=== PATIENT | male | born 1945 | race Caucasian/White ===

== ENCOUNTER 2018-09-09 01:51 | Inpatient (IN) | payer MEDICARE, MEDICAID ==
[2018-09-09 02:36] LABS: #Eosinphils 0.3 thou/uL (0.0-0.7); #Lymphocytes 1.6 thou/uL (1.20-3.40); #Monocytes 0.6 thou/uL (0.11-0.59); #Neutrophils 6.7 thou/uL (1.40-6.50); %Basophils 0.3 % (0.0-1.0); %Eosinophils 2.9 % (0.0-10.0); %Monocytes 6.6 % (0.0-10.0); %Neutrophils 73.2 % (42.0-75.0); Hemoglobin 16.7 g/dL (14.0-18.0); Mean Corpuscular HGB CONC 34.3 g/dL (32.0-36.0); Mean Corpuscular Hemoglobin 34.4 pg (27.0-31.0); Mean Platelet Volume 7.9 fL (7.4-10.4); Platelet Count 150 thou/uL (130-400); RBC Distribution Width 11.7 % (11.5-14.5); Red Blood Cell (RBC) Count 4.84 mill/uL (4.70-6.10); White Blood Cell (WBC) Count 9.2 thou/uL (4.8-10.8)
[2018-09-09] MEDS ORDERED: Ondansetron ODT 4 MG TAB ONE (02:43)
[2018-09-09 03:06] LABS: ALT (SGPT) 16 U/L (8-55); AST (SGOT) 16 U/L (5-34); Albumin 3.9 g/dL (3.4-4.8); Alkaline Phosphatase 72 U/L (40-150); Anion Gap 14 mmol/L (10-20); BUN (Urea Nitrogen) 16 mg/dL (8.4-25.7); Bilirubin, Total 0.3 mg/dL (0.2-1.2); Calc. Creatinine Clearance 0 mL/min (70-130); Calcium 9.2 mg/dL (7.8-10.44); Carbon Dioxide 24 mmol/L (23-31); Chloride 107 mmol/L (98-107); Estimated GFR-MDRD 70; Globulin 2.6 g/dL (2.4-3.5); Glucose 115 mg/dL (83-110); Potassium 3.9 mmol/L (3.5-5.1); Protein, Total 6.5 g/dL (5.8-8.1); Sodium 141 mmol/L (136-145)
[2018-09-09 03:19] LABS: Bilirubin Negative (Negative); Blood, Urine Negative (Negative); Clarity CLEAR (Clear); Glucose, Urine (Dipstick) Negative (Negative); Leukocyte Small (Negative); Nitrite Negative (Negative); Protein, Urine (Dipstick) Negative (Neg-Trace); Specific Gravity, Urine 1.022 (1.002-1.036); Urobilinogen 0.2 mg/dL (0.2-1.0)
[2018-09-09 03:22] LABS: Bacteria/HPF None Seen HPF (None Seen); Pathc Cast-AUWi Flag 1.45 (0-2.49); RBC/HPF 0-3 HPF (0-3); Squamous Epithelial 0-3 HPF (0-3)
[2018-09-09 03:29] LABS: Hyaline Casts/LPF 0-3 HYALINE CAST LPF (0-3 Hyaline); Renal Epithelial None Seen HPF (0-3); Transitional Epithelial NONE SEEN HPF (0-3)
[2018-09-09 03:31] LABS: CKMB 0.8 ng/mL (0-6.6); Troponin I Less than 0.010 ng/mL (< 0.028)
[2018-09-09] MEDS ORDERED: Acetaminophen 325 MG TAB PO PRN (05:34)
[2018-09-09] MEDS ORDERED: Senokot S 8.6-50 MG TAB PO PRN (05:34)
[2018-09-09] MEDS ORDERED: hydrALAZINE 20 MG/ML VIAL SLOW IVP PRN (05:34)
[2018-09-09] MEDS ORDERED: Diabetic Tussin 200 MG/10 ML UDCUP PO PRN (05:34)
[2018-09-09] MEDS ORDERED: Nitroglycerin 0.4 MG TAB (25 Tab Bottle) SL PRN (05:34)
[2018-09-09] MEDS ORDERED: cloNIDine 0.1 MG TAB PO PRN (05:34)
[2018-09-09] MEDS ORDERED: Ondansetron PF 4 MG/2 ML Vial IVP PRN (05:34)
[2018-09-09] MEDS ORDERED: Sodium Chloride 0.65% Nasal 44 ML BOT EA NARE PRN (05:34)
[2018-09-09] MEDS ORDERED: Bisacodyl 5 MG TAB PO PRN (05:34)
[2018-09-09] MEDS ORDERED: Benzonatate 100 MG CAP PO PRN (05:34)
[2018-09-09 05:47] LABS: Troponin I Less than 0.010 ng/mL (< 0.028)
[2018-09-09] MEDS: Sodium Chloride 0.9% 1,000 ML IV SCH ×4 (06:16→23:11)
--- NOTE | 2018-09-09 07:03 | HP ---
PRIMARY CARE PHYSICIAN: Dr. Carmel Henry. CHIEF COMPLAINT: Passing out spell and vomiting and kidney pain. HISTORY OF PRESENT ILLNESS: Mr. Harvey is a very pleasant 73-year-old male with history of coronary a rtery disease status post CABG x1 in 2012 as well as history of overactive bladder, who presented to the ER with the above-mentioned complaints. History is mainly obtained by the patient himself and el ectronic medical records have been reviewed. The patient reports that he has been having some kidney pain on and off for the last few days. He re ports that he has been on some medication for his bladder by urologist, Dr. Kebede, but was recently taken off of it because he felt that the medication is causing him to have pain in his kidneys. He felt better for about a week and then his kidney pain came back. He reports that moves from side to side. He reports it has been happening for the last week or so now. This morning, while sitting elie n on the chair, suddenly when he was turning, he slid down and feels that he lost consciousness for a few seconds, but was immediately able to correct himself and pull himself back in the chair. Later, he felt nauseated and had dry heaves multiple times and eventually vomited when his daughter was abdirizak chaudharig him over to the hospital. He has increased urinary frequency and difficulty going with hesitanc y and retention. He reports foul smell to his urine. He denies any blood in the urine. He denies a ny chest pain, shortness of breath, palpitation, diaphoresis today or in the last few days. He denie s any recent illnesses. He has not been on any cardiac medications since his surgery and he did follow up with auto body shop manager Eden Yee and Dr. Berkowitz in the outpatient setting for a while, but has not seen them in a long keyshawn e. He reports that last time he was told that his heart function is reduced to 40%, but he did not f ollow up and is not on any medications, reason unknown. In the emergency room today, his blood pressure was 135/71, pulse of 66, saturating 96% on room air. His 12-lead EKG and chest x-ray were rather unremarkable. Cardiac enzymes and labs within normal li mits. He had urinalysis that had some leukocyte esterase, WBCs, uric acid and calcium oxalate alisha ls. He was reportedly mildly orthostatic. His D-dimer was within normal limit. He was given IV flu ids in the ER and is now being admitted for further workup for his syncopal episode. PAST MEDICAL HISTORY: 1. Coronary artery disease status post CABG x1 in 2011. 2. Peripheral neuropathy. 3. "Overactive bladder". 4. Hypertension. PAST SURGICAL HISTORY: 1. Right testicle removed. 2. CABG x1. PSYCHIATRIC HISTORY: Some depression and anxiety. SOCIAL HISTORY: He lives by himself and drinks socially every week. No history of smoking or drug a buse. FAMILY HISTORY: No significant family history of premature coronary artery disease or stroke. KNOWN ALLERGIES: CODEINE, PENICILLIN, STATINS and SULFONAMIDES. CURRENT MEDICATIONS: None. REVIEW OF SYSTEMS: A 12-point review of systems is done, it is negative except for those mentioned i n the history and physical. LABORATORY DATA AND IMAGING: CBC is unremarkable. D-dimer 0.42. Serum chemistry unremarkable. Blo od sugar 115, troponin less than 0.010 x2 with normal CK-MB. BNP normal. Urinalysis as per HPI with some ketones. Chest x-ray by my review has no evidence to suggest any pleural effusion, edema or in filtrate. Twelve lead EKG by my review shows some premature atrial complexes and some nonspecific ST and T-wave changes, but nothing acute. PHYSICAL EXAMINATION: VITAL SIGNS: Most recent vital signs, temperature 97.8, pulse of 82, respirations 20, saturating 98% on room air, blood pressure 162/71. GENERAL: No acute distress. He is actually coming in and out of the restroom, because of urinary fr equency and the hesitancy during the interview. He is awake, alert, oriented x3. HEENT: Mucous membranes are slightly dry. No oropharyngeal exudate or erythema. Head is normocepha lic, atraumatic. Pupils equal, reactive to light and accommodation. Extraocular movement intact. NECK: Supple without any lymphadenopathy, JVD or bruit. CHEST: Clear to auscultation without any wheezing, rales or rhonchi. CARDIOVASCULAR: Rate and rhythm is regular without any murmur, rubs or gallops. ABDOMEN: Soft, nontender, nondistended. No CVA tenderness. EXTREMITIES: Free of any cyanosis, clubbing, or edema. NEUROLOGIC: Nonfocal. SKIN: Free of any rashes or bruises. I feel warm and dry to touch. IMPRESSION AND PLAN: 1. Syncope, it sounds more like vasovagal phenomenon after him having nausea and vomiting, possibly from a urinary tract infection. He, however, reports a low ejection fraction in multiple years ago, so cardiomyopathy cannot also be ruled out. He was mildly orthostatic, so dehydration is also respon sible for some of his symptoms. At this time, we will start him on IV fluids and IV antibiotic and s end his urine for culture. Obtain a transthoracic echocardiogram as well as carotid Doppler ultrasou nd to rule out any impairment of posterior basilar circulation. He will be also on monitoring manager ing to rule out any arrhythmias. He is currently feeling much better. 2. Hypertension. The patient's blood pressure is elevated at this time. We will start him on low d ose lisinopril given his history of coronary artery disease. He is not on any medication for now. A void any beta blockers as he was mildly orthostatic. We will recheck orthostatics and if improved wi th IV fluids, he might benefit from addition of low dose beta blockers as well. We will continue to trend serial cardiac enzymes. Cardiac etiology as such as acute coronary syndrome is less likely for now. 3. Urinary tract infection. He does not have any bacteria in the urine, but given his symptoms, we will go ahead and treat him. He will benefit from referral back to Urology for his urinary hesitancy , frequency, and possibly retention like symptoms. I would want to start him on Flomax at this time until he is seen by the Urology in the outpatient setting. 4. Coronary artery disease, status post coronary artery bypass graft. For some reason, the patient is not on any cardiac prudent medications. We will start him on low dose lisinopril and add beta blo cker as tolerated. I do not see any contraindication for aspirin at this time; however, we would ref er him back to Cardiology in the outpatient setting for further evaluation. Echo has been ordered as above. 5. CODE STATUS: FULL CODE, discussed with the patient. 6. Deep venous thrombosis and gastrointestinal prophylaxis on p.r.n. medications. DISPOSITION: Mr. Harvey is currently being admitted under observation status for a possible syncopal episode and urinary tract infection. Estimated length of stay is less than 2 midnights for now. Fur ther management will depend upon his clinical course.
--- NOTE | 2018-09-09 08:35 | RAD ---
SINGLE VIEW OF THE CHEST: Comparison: 01-27-12 History: Syncope. FINDINGS: Single view of the chest shows a normal sized cardiomediastinal silhouette. The patient is status pos t sternotomy. There is no evidence of consolidation, mass, or pleural effusion. IMPRESSION: NO evidence of acute cardiopulmonary disease. POS: [facility]
[2018-09-09] MEDS: Famotidine 20 MG TAB PO SCH ×2 (09:21→19:57)
[2018-09-09] MEDS: Tamsulosin HCl 0.4 MG CAP PO SCH (09:22)
[2018-09-09] MEDS: Lisinopril 2.5 MG TAB PO SCH (09:22)
[2018-09-09] MEDS: Enoxaparin Sodium 40 MG/0.4 ML SYRINGE SC SCH (09:28)
[2018-09-09 10:05] LABS: Troponin I Less than 0.010 ng/mL (< 0.028)
--- NOTE | 2018-09-09 10:10 | ULT ---
CAROTID ULTRASOUND WITH FOOTE SCALE AND DOPPLER DUPLEX COLOR FLOW IMAGING SPECTRAL ANALYSIS PERFORMED: CLINICAL INDICATION: FINDINGS: There is scattered mild intimal thickening/plaque formation of the carotid arteries. PEAK SYSTOLIC VELOCITY (CM/S): Right CCA 90 Left CCA 107 Right ICA 89 Left ICA 88 There is antegrade flow within the visualized bilateral vertebral arteries. IMPRESSION: 1. No hemodynamically significant stenosis of the right internal carotid artery. 2. No hemodynamically significant stenosis of the left internal carotid artery. POS: [facility]
--- NOTE | 2018-09-09 17:54 | PDOC.PN ---
- Subjective Encounter Start Date: 09/09/18 Encounter Start Time: 10:00 Patient lying in bed, he reports feeling better today, no events since admission. No chest pain, shortness of breath or abdominal pain. No syncopal like episode. Carotid doppler unremarkable. - Objective MAR Reviewed: Yes Vital Signs & Weight: Vital Signs (12 hours) Temp Pulse Resp BP Pulse Ox 09/09/18 15:23 98 F 76 18 114/66 96 09/09/18 11:23 98.7 F 79 18 128/68 97 09/09/18 09:22 81 09/09/18 07:30 98.2 F 81 18 119/62 98 Weight Weight 157 lb 1.6 oz I&O: 09/08/18 09/09/18 09/10/18 06:59 06:59 06:59 Intake Total 60 591 Output Total 500 550 Balance -440 41 Result Diagrams: 09/09/18 02:25 09/09/18 02:25 Radiology Reviewed by me: Yes Phys Exam - Physical Examination Constitutional: NAD HEENT: PERRLA, moist MMs, sclera anicteric, 2+ tonsils Neck: no nodes, no JVD, supple Respiratory: no wheezing, no rales, no rhonchi Cardiovascular: RRR, no significant murmur, no rub Gastrointestinal: soft, non-tender, no distention Musculoskeletal: no edema, pulses present Neurological: non-focal, normal sensation, moves all 4 limbs Lymphatic: no nodes Psychiatric: normal affect, A&O x 3 Skin: no rash, normal turgor, cap refill <2 seconds Dx/Plan (1) Syncope Code(s): R55 - SYNCOPE AND COLLAPSE Status: Acute (2) Hypertension Code(s): I10 - ESSENTIAL (PRIMARY) HYPERTENSION Status: Acute (3) CAD (coronary artery disease) Code(s): I25.10 - ATHSCL HEART DISEASE OF [place] CORONARY ARTERY W/O ANG PCTRS Status: Acute (4) UTI (urinary tract infection) Status: Acute - Plan cont current plan of care, DVT proph w/lovenox, DVT proph w/SCDs * Continue antibiotics for UTI, await urine culture * Continue lisinopril for BP * IV fluids for hydration * Carotid doppler unremarkable * Await Echo results * Further medical management pending patient progress and workup
[2018-09-10 04:39] LABS: Anion Gap 10 mmol/L (10-20); BUN (Urea Nitrogen) 12 mg/dL (8.4-25.7); Calc. Creatinine Clearance 65 mL/min (70-130); Calcium 8.1 mg/dL (7.8-10.44); Carbon Dioxide 20 mmol/L (23-31); Chloride 113 mmol/L (98-107); Estimated GFR-MDRD 73; Glucose 99 mg/dL (83-110); Potassium 3.9 mmol/L (3.5-5.1); Sodium 139 mmol/L (136-145)
[2018-09-10] MEDS: Enoxaparin Sodium 40 MG/0.4 ML SYRINGE SC SCH (09:41)
[2018-09-10] MEDS: Famotidine 20 MG TAB PO SCH ×2 (09:41→21:15)
[2018-09-10] MEDS: Sodium Chloride 0.9% 1,000 ML IV SCH (09:41)
[2018-09-10] MEDS: Tamsulosin HCl 0.4 MG CAP PO SCH (09:41)
[2018-09-10] MEDS: Lisinopril 2.5 MG TAB PO SCH (09:50)
--- NOTE | 2018-09-10 16:04 | PDOC.PN ---
- Subjective Encounter Start Date: 09/10/18 Encounter Start Time: 11:00 Patient lying in bed, he reports feeling better today no events over night. He denies chest pain, shortness of breath or abdominal pain. No nausea or vomiting. Echo displayed EF 40-45% with anteroseptal wall thin and dyskenetic with concern for old anterseptal IA. Dr Berkowitz would like to plan for heart cath tomrrow. - Objective MAR Reviewed: Yes Vital Signs & Weight: Vital Signs (12 hours) Temp Pulse Resp BP BP BP BP 09/10/18 11:24 98.1 F 63 16 117/63 09/10/18 08:00 123/63 125/71 121/56 L 09/10/18 07:31 98.5 F 60 18 Pulse Ox 09/10/18 11:24 98 09/10/18 08:00 09/10/18 07:31 96 Weight Weight 158 lb 12.8 oz I&O: 09/09/18 09/10/18 09/11/18 06:59 06:59 06:59 Intake Total 60 2736 905 Output Total 500 1575 300 Balance -440 1161 605 Result Diagrams: 09/09/18 02:25 09/10/18 03:49 Radiology Reviewed by me: Yes Phys Exam - Physical Examination Constitutional: NAD HEENT: PERRLA, moist MMs, sclera anicteric, oral pharynx no lesions Neck: no nodes, no JVD, supple Respiratory: no wheezing, no rales, no rhonchi, clear to auscultation bilateral Cardiovascular: RRR, no significant murmur, no rub Gastrointestinal: soft, non-tender, no distention, positive bowel sounds Musculoskeletal: no edema, pulses present Neurological: non-focal, normal sensation, moves all 4 limbs Lymphatic: no nodes Psychiatric: normal affect, A&O x 3 Skin: no rash, normal turgor, cap refill <2 seconds Dx/Plan (1) Syncope Code(s): R55 - SYNCOPE AND COLLAPSE Status: Acute (2) Hypertension Code(s): I10 - ESSENTIAL (PRIMARY) HYPERTENSION Status: Acute (3) CAD (coronary artery disease) Code(s): I25.10 - ATHSCL HEART DISEASE OF [place] CORONARY ARTERY W/O ANG PCTRS Status: Acute - Plan cont current plan of care, DVT proph w/lovenox, DVT proph w/SCDs * Echo reviewed and showed EF 40-45% with anteroseptal wall thinning with dyskentic with concern for old IA. Dr Berkowitz planning heart cath tomorrow. * Will make patient NPO at midnight. * Urine culture negative and shows no growth therefore will discontinue antibiotics, patient asymptomatic. * Further management pending patient progress and results of heart catheterization
[2018-09-10] MEDS ORDERED: Communication Order-Pharmacy FS SCH (18:30)
--- NOTE | 2018-09-10 20:25 | CON ---
CARDIOLOGY CONSULTATION DATE OF CONSULTATION: 09/10/2018 REASON FOR CONSULTATION: Syncope. HISTORY OF PRESENT ILLNESS: Mr. Harvey is a very pleasant 73-year-old white gentleman who comes to [facility] for a spell where he was at home watching TV, he had just finished his bowl of cereal, he drank the milk from the bowl and then he put the bowl on the table, turned around and felt like he wa s not in control of his body, everything started to get blurry. Once he finally regained consciousne ss, he was intermediate down the chair, slid off and was able to grab himself and sit back up on the chair . He felt nauseated for about 30 minutes after that and eventually vomited his cereal. He called hi s daughter who told him that he had to come to the hospital for this, so he came in for further evalu ation. He does have a history of coronary artery disease with a CABG x1 in 2005. He had a MARQUEZ to t he LAD, single vessel bypass. This is a very small 2 mm LAD, but a good conduit. Dr. Reed did perf orm this procedure. He actually never followed up except for one time with Dr. Yee and never ag ain. At one point in 2011, he was admitted to the hospital and was told that his EF was about 30%. This was back in 2011. More recently about 2 months ago, he showed in my office in [place] and I saw him for the first time there. He was just there establishing care. We had ordered an echocard iogram and a stress test, has not performed any of these procedures yet. Today, he is here, he had an echo done and showed an EF of 40-45%. He has got a large anteroseptal scar with thinning and dyskinesis of that wall. Cardiology is being consulted for further evaluation of all this. PAST MEDICAL HISTORY: 1. Coronary artery disease, status post CABG x1 in 2005 with a MARQUEZ to the LAD, single vessel. 2. Peripheral neuropathy. 3. Overactive bladder. 4. Hypertension. PAST SURGICAL HISTORY: 1. Right testicle removal. 2. x1. SOCIAL HISTORY: Social alcohol use, no tobacco or drug use. FAMILY HISTORY: Significant for premature coronary disease in both parents and his brother. OUTPATIENT MEDICATIONS: None. ALLERGIES: CODEINE, PENICILLIN, STATINS, SULFONAMIDES. REVIEW OF SYSTEMS: A 12-point review of systems was done and is all negative unless stated in the hi story of present illness. PHYSICAL EXAMINATION: VITAL SIGNS: Temperature 98.0, pulse 63, respiratory rate 14, satting 97% on room air, blood pressur e 142/68. His blood pressure lying flat was 121/56 and standing up 125/71, so he does not tilt. GENERAL: Awake, alert, oriented x3, in no distress. HEENT: Normocephalic. NECK: Supple. LUNGS: Clear. CARDIOVASCULAR: S1, S2, no S3, S4, no murmurs. ABDOMEN: Soft. Positive bowel sounds. EXTREMITIES: No edema. SKIN: Warm and dry. LABORATORY WORK: Reviewed. CBC: White count of 9, hemoglobin of 16, hematocrit of 48, platelet cou nt of 150. D-dimer was normal. Chemistry was unremarkable. Troponin was negative x3. BNP was 22. UA was unremarkable. EKG was reviewed. Echocardiogram was reviewed, it showed an EF of 40-45%. There is thinning and dyskinesis of the ante roseptal wall suggestive of an old anteroseptal myocardial infarction. No major valvular abnormality . ASSESSMENT AND PLAN: 1. Syncope/presyncope. 2. Dilated ischemic cardiomyopathy. 3. Reduced left ventricular function, ejection fraction at 40-45%. 4. High likelihood of an ischemic arrhythmia. 5. Coronary artery disease, status post MARQUEZ to the LAD, single vessel bypass in 2005. 6. Noncompliance and no followup. PLAN: 1. We will need to screen for ischemia. There is a high likelihood that this was an ischemic arrhyt hmia causing him to be presyncopal. We will plan on doing a heart catheterization, we spoke with him at length about the risks and benefits of the procedure, risks including, but not limited to stroke, CO, , bleeding, need for blood transfusion, limb loss, organ loss. He agrees. He verbalized u nderstanding of this and agrees to proceed. Further recommendation per results of coronary angiogram . 2. If there is no revascularizable disease, we will consult EP for possible EP study versus just an event monitor. Thank you for letting us to participate in the care of your patient. We will follow.
[2018-09-10] MEDS ORDERED: Sodium Chloride 0.9% 1,000 ML IV SCH (23:30)
[2018-09-11] MEDS: Famotidine 20 MG TAB PO SCH ×2 (06:20→20:54)
[2018-09-11] MEDS ORDERED: Lidocaine 1% (PF) 30 ML VIAL ONE (06:29)
[2018-09-11] MEDS ORDERED: Midazolam HCl 2 mg/2 ml Vial ONE (07:32)
[2018-09-11] MEDS ORDERED: Fentanyl 100 MCG/2 ML VIAL ONE (07:32)
[2018-09-11 07:41] VITALS: BMI 23.0
--- NOTE | 2018-09-11 08:06 | CON ---
ELECTROPHYSIOLOGY CONSULTATION REPORT DATE OF CONSULTATION: 09/10/2018 REFERRING PHYSICIAN: Dr. Berkowitz. [place] [facility] [place] an electrophysiology nutrition consultant. His problems are: 1. Near syncopal spell. 2. History of chronic systolic congestive heart failure with ischemic cardiomyopathy. A. Previous history of myocardial infarction in 2005. B. CABG x1 vessels in 2011. C. Reduced LVEF in the past. Most recent echo from today reveals LVEF of 40%-45%. Mildly enlarged right atrial size, mild MR, mild dilated left atrium. 3. History of TIA. 4. History of hypertension. SUBJECTIVE: Mr. Harvey is complaining of an episode of near syncopal spell. As he states, he had so me backaches attributing to his kidneys, which was causing some nausea. He then realized he was slid ing over to the right side and then nearly passed out. He thinks he actually did not fully lose cons ciousness, felt more nauseous and eventually needed to go to restroom and later even threw up some, s ome dry retching reported at that time. He has not passed out after that. He called ambulance and c kat to the ER. Here, there was no further episodes. Currently, the backaches and nausea were resolved. He never had any chest pain suggestive of angina. He had no palpitations or stroke-like symptoms at this time. No fever, chills, or cough. No bleed ing issues. REVIEW OF SYSTEMS: Rest of twelve-point review of systems otherwise unremarkable. PAST MEDICAL HISTORY: As above. He had a surgical history of right testicle removal. He also repor ts history of TIA in 01/2012, chest pains were evaluated with stress test in 01/2016, reports availab le to me currently. OBJECTIVE DATA: VITAL SIGNS: Blood pressure is 120/56 supine and standing is 125/71, heart rate 63, respiratory rate 16, temperature 98.1 degrees Fahrenheit. GENERAL: He is alert and oriented man, in no apparent distress. NECK: Supple. Jugular veins not distended. CHEST: Coarse without crackles. CARDIOVASCULAR: Heart sounds are regular to rate and rhythm. No murmur or gallop. ABDOMEN: Benign. Bowel sounds positive. EXTREMITIES: Lower extremities without edema, clubbing, or cyanosis. Pulses are adequate. NEUROLOGIC: Patient is nonfocal. MUSCULOSKELETAL: Without joint swelling or deformities. SKIN: Without rash. The mid sternal scar is appreciated. DATABASE: EKGs reviewed reveals sinus rhythm, rate of 62 beats per minute, narrow QRS, QS in V2, V3, suggestive of prior septal OR. LABORATORY DATA: White count is 9.2, hemoglobin 16.7, platelet count is 150,000. Sodium 139, potass ium 3.9, BUN is 12, creatinine 1.0. Troponin I's are 0.01 x3. BNP 22.6. IMAGING: The chest x-ray showed no evidence of acute cardiopulmonary disease. ASSESSMENT AND PLAN: Mr. Harvey is a pleasant 73-year-old man with prior history of coronary artery d isease, myocardial infarction, and ischemic cardiomyopathy, [id number] reduced LVEF of 40%-45% in the current echocardiogram. He presented with near syncopal spell in the presence of some nausea. We discussed the potential etiologies which could include some vagal tone related blood pressure or h eart rate drop versus tachyarrhythmias also could be considered. Especially in view of the prior melonie cardial infarction and less than normal LV systolic function, this is a possibility. At this point, plan is to perform a repeat ischemic workup as per Dr. Berkowitz. We will continue monitoring depending on the results especially further ventricular arrhythmias are s een, but no revascularization is possible, EP study may be a reasonable option. Otherwise, a long-te rm monitoring could be considered. We will follow with you and we will advise depending on left heart catheterization results.
[2018-09-11] MEDS: Tamsulosin HCl 0.4 MG CAP PO SCH (08:10)
[2018-09-11] MEDS ORDERED: traMADol HCl 50 MG TAB PO PRN (08:18)
[2018-09-11] MEDS ORDERED: Sodium Chloride 0.9% 200 ML IV SCH (08:30)
[2018-09-11] MEDS ORDERED: Sodium Chloride 0.9% 1,000 ML IV SCH (08:30)
[2018-09-11] MEDS ORDERED: Iopamidol 370 76% 100 ML VIAL ONE (13:13)
--- NOTE | 2018-09-11 16:44 | PDOC.CTH ---
Cardiology Progress Note - Subjective EP progress note: Patient seen and evaluated. No new cardiac concerns or complaints today. Denies heart racing, palpitations, chest pain/pressure, dizziness, or passing out. No stroke like symptoms. - Objective Vital Signs Temp Pulse Resp BP BP Pulse Ox 09/11/18 15:56 98.8 F 64 18 117/58 L 98 09/11/18 13:50 96 09/11/18 13:30 98.2 F 84 18 112/84 96 09/11/18 11:29 98.5 F 88 20 111/61 97 Weight 160 lb 8 oz 09/10/18 09/11/18 09/12/18 06:59 06:59 06:59 Intake Total 2736 905 490 Output Total 1575 300 655 Balance 1161 605 -165 - Physical Examination General/Neuro: alert & oriented x3, NAD Neck: carotid US brisk, no JVD present Lungs: CTA, unlabored respirations Heart: PMI normal, RRR Abdomen: NT/ND, soft - Telemetry Telemetry Rhythm: SR - Labs Result Diagrams: 09/09/18 02:25 09/10/18 03:49 Troponin/CKMB CK-MB (CK-2) 0.8 ng/mL (0-6.6) 09/09/18 02:25 Troponin I Less than 0.010 ng/mL (< 0.028) 09/09/18 09:14 - Assessment/Plan 1. CAD -LHC, no intervention performed. 2. ICMP, EF 40-45% 3. Near syncope -associated nausea, back pain. - recommend ILR. Discussed with Dr Berkowitz. Will be placed by him likely tomorrow. OK to DC by EP.
--- NOTE | 2018-09-11 17:13 | PDOC.PN ---
- Subjective Encounter Start Date: 09/11/18 Encounter Start Time: 13:00 Patient lying in bed, he reports doing well today without complaints. He denies chest pain, palpitations, shortness of breath. He underwent LHC no intervention was performed. Dr Richards in agreement with loop recorder placement likely tomorrow. - Objective MAR Reviewed: Yes Vital Signs & Weight: Vital Signs (12 hours) Temp Pulse Resp BP BP Pulse Ox 09/11/18 15:56 98.8 F 64 18 117/58 L 98 09/11/18 13:50 96 09/11/18 13:30 98.2 F 84 18 112/84 96 09/11/18 11:29 98.5 F 88 20 111/61 97 Weight Weight 160 lb 8 oz I&O: 09/10/18 09/11/18 09/12/18 06:59 06:59 06:59 Intake Total 2736 905 490 Output Total 1575 300 655 Balance 1161 605 -165 Result Diagrams: 09/09/18 02:25 09/10/18 03:49 Radiology Reviewed by me: Yes Phys Exam - Physical Examination Constitutional: NAD HEENT: PERRLA, moist MMs, sclera anicteric, oral pharynx no lesions edentulous Neck: no nodes, no JVD, supple, full ROM Respiratory: no wheezing, no rhonchi, clear to auscultation bilateral Cardiovascular: RRR, no significant murmur, no rub Gastrointestinal: soft, non-tender, no distention, positive bowel sounds Musculoskeletal: no edema, pulses present, edema present Neurological: non-focal, normal sensation, moves all 4 limbs Lymphatic: no nodes Psychiatric: normal affect, A&O x 3 Skin: no rash, normal turgor, cap refill <2 seconds Dx/Plan (1) Syncope Code(s): R55 - SYNCOPE AND COLLAPSE Status: Acute (2) Hypertension Code(s): I10 - ESSENTIAL (PRIMARY) HYPERTENSION Status: Acute (3) CAD (coronary artery disease) Code(s): I25.10 - ATHSCL HEART DISEASE OF [place] CORONARY ARTERY W/O ANG PCTRS Status: Acute (4) Ischemic cardiomyopathy Code(s): I25.5 - ISCHEMIC CARDIOMYOPATHY Status: Acute - Plan cont current plan of care * Patient s/p LHC no intervention performed EF 40-45% * Dr Richards in agreement with loop recorder placement likely tomorrow * Continue medical management with home medications * Disposition pending patient progress and loop recorder placement
[2018-09-12] MEDS: Tamsulosin HCl 0.4 MG CAP PO SCH (07:31)
[2018-09-12] MEDS: Famotidine 20 MG TAB PO SCH ×2 (08:37→20:22)
[2018-09-12] MEDS ORDERED: Sodium Chloride 0.9% 500 ML IV SCH (14:45)
[2018-09-12] MEDS: diphenhydrAMINE 25 MG CAP PO PRN ×2 (15:16→19:27)
--- NOTE | 2018-09-12 16:12 | PDOC.PN ---
- Subjective Encounter Start Date: 09/12/18 Encounter Start Time: 13:00 Patient sitting up in bed, he reports having itching and rash appear from electrodes from tele. He denies any chest pain or shortness of breath. Ortho BP positive. He denies dizziness or syncope. - Objective MAR Reviewed: Yes Vital Signs & Weight: Vital Signs (12 hours) Temp Pulse Resp BP BP BP BP 09/12/18 15:31 98 F 62 18 117/63 09/12/18 12:00 98.3 F 64 18 104/59 L 09/12/18 07:25 09/12/18 07:23 70 16 113/63 100/65 123/64 09/12/18 07:19 98.3 F 70 14 128/64 Pulse Ox 09/12/18 15:31 96 09/12/18 12:00 94 L 09/12/18 07:25 96 09/12/18 07:23 09/12/18 07:19 96 Weight Weight 149 lb 8 oz I&O: 09/11/18 09/12/18 09/13/18 06:59 06:59 06:59 Intake Total 905 1450 Output Total 300 1955 Balance 605 -505 Result Diagrams: 09/09/18 02:25 09/10/18 03:49 Radiology Reviewed by me: Yes EKG Reviewed by me: Yes Phys Exam - Physical Examination Constitutional: NAD HEENT: PERRLA, moist MMs, sclera anicteric, oral pharynx no lesions Neck: no nodes, no JVD, supple Respiratory: no wheezing, no rales, no rhonchi, clear to auscultation bilateral Cardiovascular: RRR, no significant murmur, no rub Gastrointestinal: soft, non-tender, no distention, positive bowel sounds Musculoskeletal: no edema, pulses present Neurological: non-focal, normal sensation, moves all 4 limbs Lymphatic: no nodes Psychiatric: normal affect, A&O x 3 Skin: normal turgor, cap refill <2 seconds Deviation from normal: Erythematous eruptions anterior chest Dx/Plan (1) Syncope Code(s): R55 - SYNCOPE AND COLLAPSE Status: Acute (2) Hypertension Code(s): I10 - ESSENTIAL (PRIMARY) HYPERTENSION Status: Acute (3) CAD (coronary artery disease) Code(s): I25.10 - ATHSCL HEART DISEASE OF [place] CORONARY ARTERY W/O ANG PCTRS Status: Acute (4) Ischemic cardiomyopathy Code(s): I25.5 - ISCHEMIC CARDIOMYOPATHY Status: Acute (5) Allergic contact dermatitis due to adhesives Code(s): L23.1 - ALLERGIC CONTACT DERMATITIS DUE TO ADHESIVES Status: Acute - Plan cont current plan of care, DVT proph w/SCDs * Dr Berkowitz following and planning LINQ placement tomorrow * Start benadryl 25mg prn itching for reaction to adhesive * 500ml bolus due to orthostatic hypotension * monitor patient closely * Disposition pending patient progress andoutcome of LINQ, but likely home
--- NOTE | 2018-09-12 17:44 | PDOC.CTH ---
Cardiology Progress Note - Subjective He is doing well. His hematoma has resolved and only has a small bruise on his groin. - Objective Vital Signs Temp Pulse Resp BP BP BP BP 09/12/18 15:31 98 F 62 18 117/63 09/12/18 12:00 98.3 F 64 18 104/59 L 09/12/18 07:25 09/12/18 07:23 70 16 113/63 100/65 123/64 09/12/18 07:19 98.3 F 70 14 128/64 Pulse Ox 09/12/18 15:31 96 09/12/18 12:00 94 L 09/12/18 07:25 96 09/12/18 07:23 09/12/18 07:19 96 Weight 149 lb 8 oz 09/11/18 09/12/18 09/13/18 06:59 06:59 06:59 Intake Total 905 1450 Output Total 300 1955 Balance 605 -505 - Physical Examination General/Neuro: alert & oriented x3, NAD Neck: no JVD present Lungs: CTA, unlabored respirations Heart: RRR Abdomen: NT/ND Extremities: other: (no edema.) - Telemetry Telemetry Rhythm: NSR - Labs Result Diagrams: 09/09/18 02:25 09/10/18 03:49 Troponin/CKMB CK-MB (CK-2) 0.8 ng/mL (0-6.6) 09/09/18 02:25 Troponin I Less than 0.010 ng/mL (< 0.028) 09/09/18 09:14 - Assessment/Plan 1. Syncope. 2. CAD 3. S/P CABG 4. Dilated CM Ef at 40-45% PLAN: - ill plan on doing LINQ tomorrow. - May discharge tomorrow after LINQ - Will need stenting of his IR but this will happen after his right groin has healed in about 1 month and will have to do with a faye catheter in place.
[2018-09-13] MEDS: diphenhydrAMINE 25 MG CAP PO PRN ×2 (01:55→10:13)
[2018-09-13] MEDS ORDERED: Lidocaine 1% w/Epinephrine 1:100K 30 ML VIAL ONE (06:50)
[2018-09-13] MEDS: Famotidine 20 MG TAB PO SCH (08:12)
[2018-09-13] MEDS: Tamsulosin HCl 0.4 MG CAP PO SCH (08:12)
[2018-09-13 12:08] VITALS: BP 136/64; TEMP 98.2
--- NOTE | 2018-09-13 13:44 | PDOC.CTH ---
Cardiology Progress Note - Subjective EP progress note: Getting ready for DC after ILR placed by Dr Berkowitz. No new issues. Feels well and ready for DC home - Objective Vital Signs Temp Pulse Resp BP BP BP BP 09/13/18 12:00 98.2 F 69 17 136/64 09/13/18 08:19 97.9 F 75 15 118/59 L 118/59 L 09/13/18 08:00 97.9 F 75 15 109/56 L 112/59 L 09/13/18 04:00 99 F 68 12 105/51 L BP Pulse Ox 09/13/18 12:00 96 09/13/18 08:19 97 09/13/18 08:00 109/56 L 97 09/13/18 04:00 96 Weight 149 lb 11.2 oz 09/12/18 09/13/18 09/14/18 06:59 06:59 06:59 Intake Total 1450 1570 Output Total 1955 1500 Balance -505 70 - Physical Examination General/Neuro: alert & oriented x3, NAD Neck: carotid US brisk, no JVD present Lungs: CTA, unlabored respirations Heart: PMI normal, RRR Abdomen: NT/ND, soft - Telemetry Telemetry Rhythm: SR - Labs Result Diagrams: 09/09/18 02:25 09/10/18 03:49 Troponin/CKMB CK-MB (CK-2) 0.8 ng/mL (0-6.6) 09/09/18 02:25 Troponin I Less than 0.010 ng/mL (< 0.028) 09/09/18 09:14 - Assessment/Plan 1. CAD -LHC, no intervention performed. 2. ICMP, EF 40-45% 3. Near syncope -associated nausea, back pain. - ILR placed today OK to DC by EP. Will see back in clinic in 4-6 weeks. Signing off
--- NOTE | 2018-09-13 22:35 | CCL ---
DATE OF SERVICE: 09/13/2018. PROCEDURES PERFORMED: Insertion of permanent monitoring and evaluation advisor Medtronic model [id number] MDT Linq 11, serial number [id number]. COMPLICATIONS: None. PROCEDURE SUMMARY: The patient was taken to the procedural area, prepped and draped in the usual sterile fashion. Lidoc tina was utilized for local anesthesia. An incision was made at the fourth intercostal space in the left pectoral region utilizing a skin puncture tool. The insertion monitoring and evaluation advisor Linq was inserted through the puncture site with a Linq insertion tool. Dermabond was then applied to the site in the usual sterile fashion. PLAN: 1. Continue monitoring. 2. Wound care. Follow up in 1 week for wound check.
== END 2018-09-13 13:44 | disposition home or self-care (01) | DRG 261 ==
LOC: ERS 01:51 → 2SW 04:07 → OBSVTOIN 09-10 17:07 → 2NO 09-11 13:17
PROVIDERS: ADMIT Internal Medicine; ATTEND Internal Medicine
PROC: 4A023N7 Measurement of Cardiac Sampling and Pressure, Left Heart, Percutaneous Approach (ICD-10-PCS; 2018-09-11)
PROC: B2111ZZ Fluoroscopy of Multiple Coronary Arteries using Low Osmolar Contrast (ICD-10-PCS; 2018-09-11)
PROC: B2151ZZ Fluoroscopy of Left Heart using Low Osmolar Contrast (ICD-10-PCS; 2018-09-11)
PROC: 0JH632Z Insertion of Monitoring Device into Chest Subcutaneous Tissue and Fascia, Percutaneous Approach (ICD-10-PCS; principal; 2018-09-13)
DX: R55 Syncope and collapse (principal); I42.0 Dilated cardiomyopathy; I50.22 Chronic systolic (congestive) heart failure; I25.10 Atherosclerotic heart disease of native coronary artery without angina pectoris; Z95.1 Presence of aortocoronary bypass graft; N32.81 Overactive bladder; G62.9 Polyneuropathy, unspecified; F32.9 Major depressive disorder, single episode, unspecified; F41.9 Anxiety disorder, unspecified; E86.0 Dehydration; I25.5 Ischemic cardiomyopathy; L23.1 Allergic contact dermatitis due to adhesives; I11.0 Hypertensive heart disease with heart failure; Z88.5 Allergy status to narcotic agent; Z88.0 Allergy status to penicillin; Z88.2 Allergy status to sulfonamides; Z86.73 Personal history of transient ischemic attack (TIA), and cerebral infarction without residual deficits
CPT/HCPCS: 33282; 36406; 36415; 36416; 71045; 80048; 80053; 81003; 81015; 82553; 83880; 84484; 85025; 85379; 87086; 93005; 93306; 93459; 93880; 96360; 99152; C1764; C1769; J1644; J1650; J1956; J2001; J2250; J3010; Q0162

== ENCOUNTER 2020-05-29 14:18 | Observation (INO) | payer MEDICARE, MEDICAID, OTHER ==
[2020-05-29 17:03] VITALS: BMI 24.1
[2020-05-29] MEDS ORDERED: Ondansetron PF 4 MG/2 ML Vial IVP PRN (17:07)
[2020-05-29] MEDS ORDERED: Acetaminophen 325 MG TAB PO PRN (17:07)
[2020-05-29] MEDS ORDERED: Bisacodyl 5 MG TAB PO PRN (17:07)
[2020-05-29] MEDS ORDERED: hydrALAZINE 20 MG/ML VIAL SLOW IVP PRN (17:12)
[2020-05-29] MEDS ORDERED: Aspirin 325 mg Enteric Coated Tablet PO SCH (17:30)
--- NOTE | 2020-05-29 18:36 | PDOC.HHP ---
Hospitalist HPI - History of Present Illness Dizziness History of Present Illness: Patient is a pleasant 75-year-old gentleman who was seen on May 29, 2020 following transfer from emergency room at [place]. He reports that he has a history of coronary artery disease. He was on aspirin but is noncompliant with aspirin. He reports that he takes it when he feels like it. He is not on any statin at this time. For the last week, he has been having episodes of dizziness. He describes it as on and off, worse when he is leaning forwards. He cannot recall any relieving factors. He denies any weakness. He reports feeling nauseated. He denies any chest pain or shortness of breath. He denies any cough, fevers or chills. He presented to the emergency room because of ongoing dizziness. He also describes it as a sensation of the room spinning around him. ED Course: BP: 134/67, Pulse: 65, Resp: 18, Temp: 97.9, Pain: 0, O2 sat: 99, Time: 2019 15:30. Hospitalist ROS - Review of Systems Constitutional: denies: fever, chills, sweats, weakness, malaise Respiratory: denies: cough, shortness of breath, hemoptysis, SOB with excertion , pleuritic pain, wheezing Gastrointestinal: denies: nausea, vomiting, abdominal pain, diarrhea, constipation, melena, hematochezia Musculoskeletal: denies: neck pain, shoulder pain, arm pain, back pain, hand pain, leg pain, foot pain Neurological: reports: other (dizziness). 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 Renal/: reports: Chronic renal insuff - Past Surgical History Past Surgical History: reports: CABG, Other Other Surgical History: right orchiectomy, 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 Allergies: Codeine penicillin statins sulfa Home medications: None - Family History Family History: denies: cerebrovascular accident - Social History Smoking Status: Never smoker Alcohol: reports: None Drugs: reports: none - Exam General Appearance: awake alert Eye: anicteric sclera ENT: normocephalic atraumatic, moist mucosa Neck: supple, symmetric, no thyromegaly, no lymphadenopathy Heart: RRR, no gallops, no rubs, normal peripheral pulses Respiratory: CTAB Gastrointestinal: soft, non-tender, non-distended, normal bowel sounds Neurological: cranial nerve grossly intact, normal sensation to touch, no weakness, no focal deficits Psychiatric: normal affect, normal behavior, A&O x 3 Hospitalist Results - Labs Lab results: He has normal sodium, normal potassium, normal creatinine, unremarkable LFTs, PTT 27.8, INR 1.0, normal white count, normal hemoglobin and normal platelet count. - Radiology Interpretation Chest x-ray Status: image reviewed by me Additional Comment: XR Chest 1 View Portable History: Dizziness Comparison: Radiograph 2018 Findings: Recording device projects over the left hemithorax. Lungs are otherwise clear. No pneumotho rax. No effusion. Extensive cassette artifact. Impression: No acute intrathoracic abnormality. CT scan - head Additional Comment: No evidence of intracranial hemorrhage or mass effect on noncontrast CT brain. Hospitalist H&P A/P - Plan Plan: #1. Vertigo: Patient is presenting with vertigo. Clinical features suggest that it is BPPV. However, he also has risk factors for stroke. He will be admitted to the hospital on observation status to rule out stroke. I will order MRI of the brain, 2D echocardiogram and carotid Dopplers. Neurology service will be consulted. I will start him on aspirin. He is allergic to statins, therefore I am not starting him on statin. 2. Coronary artery disease: Patient has a history of coronary artery disease. It appears to be stable. 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 3.. Hypertension: In the past he was diagnosed with hypertension. Currently, he is not on any antihypertensives. We will monitor vital signs and start antihypertensives as needed. 4. Chronic kidney disease stage II: This appears to be stable. 5. Patient is Christian. He requests that no blood products be administered to him. 6. CODE STATUS was discussed, patient is full code Level of risk: High Level of complexity: High
[2020-05-29] MEDS: Meclizine HCl 25 MG TAB PO SCH (20:19)
[2020-05-30] MEDS: Meclizine HCl 25 MG TAB PO SCH ×2 (04:28→12:09)
[2020-05-30 05:14] LABS: #Basophils 0.1 thou/uL (0.0-0.2); #Eosinphils 0.3 thou/uL (0.0-0.7); #Lymphocytes 2.1 thou/uL (1.20-3.40); #Monocytes 0.7 thou/uL (0.11-0.59); #Neutrophils 4.8 thou/uL (1.40-6.50); %Basophils 1.1 % (0.0-1.0); %Eosinophils 3.8 % (0.0-10.0); %Lymphocytes 26.6 % (21.0-51.0); %Monocytes 9.2 % (0.0-10.0); %Neutrophils 59.4 % (42.0-75.0); Hemoglobin 15.3 g/dL (14.0-18.0); Mean Corpuscular HGB CONC 32.2 g/dL (32.0-36.0); Mean Corpuscular Hemoglobin 31.9 pg (27.0-31.0); Mean Corpuscular Volume 99.1 fL (78.0-98.0); Mean Platelet Volume 8.7 fL (7.4-10.4); Platelet Count 171 thou/uL (130-400); RBC Distribution Width 11.5 % (11.5-14.5)
[2020-05-30 05:43] LABS: Anion Gap 9 mmol/L (10-20); BUN (Urea Nitrogen) 12 mg/dL (8.4-25.7); Calc. Creatinine Clearance 71 mL/min (70-130); Calcium 8.7 mg/dL (7.8-10.44); Carbon Dioxide 25 mmol/L (23-31); Cardiac Risk 3.8 (Less than 4.5); Chloride 111 mmol/L (98-107); Cholesterol 211 mg/dl (< 200 Desired); Estimated GFR-MDRD 78; Glucose 85 mg/dL (83-110); HDL Cholesterol 55 mg/dL (>60 Neg Risk); LDL Cholesterol, Calculated 138 mg/dL; Potassium 3.8 mmol/L (3.5-5.1); Sodium 141 mmol/L (136-145); Triglycerides 88 mg/dL (Less than 150)
[2020-05-30] MEDS ORDERED: Enoxaparin Sodium 40 MG/0.4 ML SYRINGE SC SCH (09:00)
[2020-05-30] MEDS ORDERED: Aspirin 325 mg Enteric Coated Tablet PO SCH (09:00)
--- NOTE | 2020-05-30 09:01 | ULT ---
CAROTID DOPPLER: Date: 05/30/2020 PROVIDED CLINICAL HISTORY: CVA. FINDINGS: [place] scale and color Doppler sonography with spectral analysis was performed of the extracranial carson tid system bilaterally. There is no evidence for hemodynamically significant internal carotid artery stenosis by peak systolic velocity or ratio criteria. Antegrade flow is seen in the vertebral arterie s. IMPRESSION: No hemodynamically significant internal carotid artery stenosis is apparent sonographically. POS: CHANO
[2020-05-30] MEDS ORDERED: Lorazepam 1 MG TAB PO PRN (09:05)
--- NOTE | 2020-05-30 10:05 | CON ---
DATE OF CONSULTATION: 05/30/2020 CONSULTING PHYSICIAN: Hospitalist Service. IMPRESSION: Benign positional vertigo. PLAN: Going to refer to the [facility]. HISTORY OF PRESENT ILLNESS: Mr. Harvey is a 75-year-old male with history of coronary artery disease. He has been having episodic brief spells of vertigo. These are commonly brought on by rolling over or changing positions quickly. They can be associated with a slight nausea, not associated with headache, slurred speech, or any focal neurologic symptoms. He has told his supervisor hot dip tinning about it and he reportedly does not have any cardiac issues that would lead to such symptoms. He decided to come into the hospital for evaluation after having a 5-second episode that made him hold onto the countertop. He had a carotid Doppler study done, which does not show any hemodynamically significant stenosis. He had a CT of the brain done in the emergency room, which was unremarkable for any abnormalities. His lab work including a CBC and comprehensive metabolic panel was unremarkable. PAST MEDICAL HISTORY: Coronary artery disease. ALLERGIES: CODEINE, PENICILLIN, STATINS, AMONG OTHERS. SOCIAL HISTORY: No tobacco or alcohol. FAMILY HISTORY: Noncontributory. MEDICATIONS: List was reviewed. REVIEW OF SYSTEMS: Ten-system review of systems is otherwise negative. PHYSICAL EXAMINATION: VITAL SIGNS: Blood pressure 126/73, pulse 72, respirations 16, and temperature 98.6. HEENT: Pupils equal and reactive. Conjunctivae clear. No nystagmus is present. Oropharynx clear. NECK: Supple. No lymphadenopathy. ABDOMEN: Soft and nontender. EXTREMITIES: No cyanosis or edema. SKIN: Clear. NEUROLOGIC: He is alert and appropriate. His speech is fluent and clear. He has no focal deficits. There was no dysmetria or incoordination present. Sensations intact to touch. SUMMARY: A 75-year-old gentleman with brief episodes of vertigo associated with postural changes. This appears to be consistent with benign positional vertigo. He can be referred to the [facility] for treatment. Job ID: [id number]
--- NOTE | 2020-05-30 10:16 | MRI ---
MRI BRAIN: Date: 05/30/2020 PROVIDED CLINICAL HISTORY: Headache and dizziness. FINDINGS: Comparison made with the study dated 01/28/[address] examination dated 05/29/2020. The ventricular system is normal in size and morphology. There is signal alteration involving a small portion of the cortex and subcortical white matter of th e right frontal lobe near the vertex. There is no evidence for corresponding restricted diffusion. Th ere is probably some associated cortical encephalomalacia in this region. Chronic microvascular ischemic changes are seen involving the periventricular and deep cerebral white matter. There is no evidence for intracranial hemorrhage. There is no shift of the midline structure s. The basilar cisterns appear patent. The extracranial soft tissues and calvarial marrow signal appear unremarkable. There is maintenance o f the normal flow-voids within the major intracranial vessels. IMPRESSION: 1. No evidence for restricted diffusion to suggest recent infarction. 2. Cortical and subcortical white matter signal abnormality involving a small focal portion of the r ight frontal lobe, probably reflecting subacute infarct. 3-6 month follow-up brain MRI is recommended . POS: CHANO
[2020-05-30 11:50] VITALS: BP 135/83; TEMP 98
--- NOTE | 2020-05-30 13:16 | CON ---
DATE OF CONSULTATION: 05/30/2020 REASON FOR CONSULTATION: Dizziness. HISTORY OF PRESENT ILLNESS: Mr. Harvey is a pleasant 75-year-old white gentleman, very well known to myself, who comes to the hospital for dizziness. He had a spell that lasted about 5 seconds where he was leaning down to splash his face with water in the sink and when he stood up, he was extremely dizzy, had to hold onto the sink not to fall down. He decided to come in for further evaluation as this happened periodically. He was evaluated with negative carotid Dopplers, MRI and CT of the brain was negative as well. Cardiology is being consulted to make sure there is no cardiac issue. PAST MEDICAL HISTORY: 1. Coronary artery disease with previous bypass with a patent MARQUEZ to the LAD on heart catheterization back in August 2018. 2. Ischemic cardiomyopathy with an EF of 40% to 45%. 3. Medication noncompliance. He has refused to take any medications for some time now. He only takes a baby aspirin at home. SURGICAL HISTORY: 1. CABG with MARQUEZ to the LAD patent on heart catheterization in 2017. 2. LINQ implantable loop recorder placement back in 2017 as well in August. No arrhythmias have been seen since. SOCIAL HISTORY: No alcohol, tobacco, or drugs. OUTPATIENT MEDICATIONS: 1. [place]'s wort. 2. Ex-Lax. 3. Aspirin 81 a day. ALLERGIES: 1. CODEINE. 2. PENICILLIN. 3. STATIN DRUGS. 4. SULFA DRUGS. FAMILY HISTORY: Noncontributory. REVIEW OF SYSTEMS: A 12-point review of systems was done and was found to be negative other than stated in the history of present illness. PHYSICAL EXAMINATION: VITAL SIGNS: Temperature 98, pulse 71, respiratory rate 16, saturating 97% on room air, blood pressure 135/83. GENERAL: Awake, alert, oriented x3, in no distress. HEENT: Normocephalic and atraumatic. NECK: Supple. LUNGS: Clear. CARDIOVASCULAR: S1 and S2. No S3 or S4. No murmurs. ABDOMEN: Soft. Positive bowel sounds. EXTREMITIES: Trace edema. SKIN: Warm and dry. LABORATORY DATA: Laboratory work was reviewed. White count of 8, hemoglobin of 15, hematocrit of 47, platelet count of 171. Chemistries were unremarkable except for a chloride of 111. Total cholesterol was 211, LDL not at goal at 138, HDL of 55. Vitamin B12 was normal. Folate was normal. EKG was reviewed. Carotid Doppler was unremarkable. MRI of the brain showed no infarction. There is cortical and subcortical white matter signal abnormality, which reflects what appears to be a subacute infarct. 3- to 6-month followup with brain was recommended. ASSESSMENT AND PLAN: 1. Dizziness. Likely benign positional vertigo. 2. Coronary artery disease stable. No acute coronary syndrome. 3. History of transient ischemic attack in the past and possibly stroke. No evidence of thrombogenic arrhythmias on LINQ up until March of this year. Kiera's report is still pending. We will interrogate the device to make sure there is no cardiac arrhythmias causing his dizziness. 4. Most recent echo was in September of last year and it showed an EF of 40% to 45% with grade 1 diastolic dysfunction. Mild aortic valve sclerosis with mild AI. There was moderate mitral valve prolapse of two leaflets with moderate MR, mild TR, and mild PI. Ascending aorta was 4 cm. Thank you for letting us to participate in the care of your patient. We will follow. Job ID: [id number]
--- NOTE | 2020-05-30 14:24 | DIS ---
DATE OF ADMISSION: 05/29/2020 DATE OF DISCHARGE: 05/30/2020 DISCHARGE DISPOSITION: Home. FOLLOWUP: 1. Follow up with primary care physician, Dr. Henry in 1 week. 2. Follow up with Cardiology, Dr. Berkowitz. 3. Follow up with ENT, Dr. José Luis Hong in 1 week. 4. Follow up with Dr. Kilpatrick in 3 to 4 weeks. The patient was seen on the day of discharge. Denies any new complaints. No new chest pain, shortness of breath, palpitations, or focal deficit reported. BRIEF HOSPITAL COURSE: The patient is a 75-year-old male with coronary artery disease, presented to the hospital with dizziness, especially on leaning forward. At times, the dizziness happens without any movement. He also felt nauseous. He also had intermittent vertigo with tinnitus. Please refer to the history and physical for further details. The patient was admitted to the hospital with a diagnosis of vertigo, rule out posterior CVA. He underwent a carotid Doppler that was negative for hemodynamically significant stenosis. An echocardiogram done recently at Dr. Berkowitz's office, showed ejection fraction 40% to 45% with grade 1 diastolic dysfunction, mild aortic valve sclerosis, and mild aortic incompetence. There was also moderate mitral valve prolapse with moderate mitral regurgitation. Ascending aorta was 4 cm. The patient was evaluated by Cardiology and Neurology. MRI of the brain was obtained that showed cortical and subcortical white matter signal changes in the right frontal lobe, probably reflecting subacute infarct. A 3 to 6 months followup brain MRI is recommended. Primary care physician advised to follow. The patient has been cleared by Neurology and Cardiology for discharge. He will benefit from outpatient dizziness and balance program. Outpatient physical therapy referral was added. His LINQ interrogation did not reveal significant arrhythmia until March. Dr. Berkowitz will follow up the patient as an outpatient. He has been cleared by Cardiology for discharge. No driving until cleared by MD. FINAL DIAGNOSES: 1. Vertigo. Acute cerebrovascular accident ruled out. 2. Coronary artery disease. 3. Hypertension. 4. Chronic kidney disease stage 2. 5. [facility]. 6. Abnormal changes in the brain MRI in the right frontal lobe. Repeat MRI in 3 to 6 months is recommended. 7. History of transient ischemic attack in the past, on aspirin. 8. History of coronary artery bypass grafting. 9. History of LINQ loop recorder placement in 2018. 10. Statin intolerance. SIGNIFICANT LABORATORY DATA: Magnesium 2.3. Folic acid 13.7. Vitamin B12 of 521. Fasting lipid profile showed cholesterol 211 with LDL 138, HDL 55. CBC showed WBC 8.0 with hemoglobin 15.3. Job ID: [id number]
[2020-05-30 15:05] LABS: SARS-CoV-2 MS2 Positive; SARS-CoV-2 N Gene Negative; SARS-CoV-2 S Gene Negative; SARS-CoV-2 by NAA Not Detected (NotDetected); SARS-CoV-2 orf1ab Negative
== END 2020-05-30 16:19 | disposition home or self-care (01) ==
LOC: 2SE 16:10
PROVIDERS: ADMIT Internal Medicine; ATTEND Internal Medicine
DX: R42 Dizziness and giddiness (principal); I25.10 Atherosclerotic heart disease of native coronary artery without angina pectoris; I12.9 Hypertensive chronic kidney disease with stage 1 through stage 4 chronic kidney disease, or unspecified chronic kidney disease; N18.2 Chronic kidney disease, stage 2 (mild); R90.89 Other abnormal findings on diagnostic imaging of central nervous system; I25.5 Ischemic cardiomyopathy; I35.8 Other nonrheumatic aortic valve disorders; I34.0 Nonrheumatic mitral (valve) insufficiency; Z86.73 Personal history of transient ischemic attack (TIA), and cerebral infarction without residual deficits; Z91.14 Patient's other noncompliance with medication regimen; Z79.82 Long term (current) use of aspirin; Z79.899 Other long term (current) drug therapy; Z88.0 Allergy status to penicillin; Z88.2 Allergy status to sulfonamides; Z88.5 Allergy status to narcotic agent; Z88.8 Allergy status to other drugs, medicaments and biological substances; Z95.1 Presence of aortocoronary bypass graft; Z95.818 Presence of other cardiac implants and grafts
CPT/HCPCS: 70551; 80048; 80061; 82607; 82746; 83735; 85025; 93880; 97139 ×2; U0003; 36415; 87635; G0378

== ENCOUNTER 2022-08-18 15:17 | Inpatient (IN) | payer MEDICARE, MEDICAID ==
[2022-08-18 16:15] LABS: #Basophils 0.1 thou/uL (0.0-0.2); #Eosinphils 0.4 thou/uL (0.0-0.7); #Lymphocytes 1.3 thou/uL (1.20-3.40); #Monocytes 0.7 thou/uL (0.11-0.59); #Neutrophils 4.3 thou/uL (1.40-6.50); %Eosinophils 5.2 % (0.0-10.0); %Lymphocytes 19.7 % (21.0-51.0); Mean Corpuscular HGB CONC 33.2 g/dL (32.0-36.0); Mean Corpuscular Hemoglobin 33.3 pg (27.0-31.0); Mean Platelet Volume 7.9 fL (7.4-10.4); Platelet Count 179 thou/uL (130-400); RBC Distribution Width 11.7 % (11.5-14.5); Red Blood Cell (RBC) Count 4.51 mill/uL (4.70-6.10); White Blood Cell (WBC) Count 6.8 thou/uL (4.8-10.8)
[2022-08-18 16:35] LABS: ALT (SGPT) 26 U/L (8-55); AST (SGOT) 22 U/L (5-34); Albumin 3.7 g/dL (3.4-4.8); Alkaline Phosphatase 67 U/L (40-110); Anion Gap 14 mmol/L (10-20); BUN (Urea Nitrogen) 16 mg/dL (8.4-25.7); Bilirubin, Total 0.4 mg/dL (0.2-1.2); Calc. Creatinine Clearance 0 mL/min (70-130); Calcium 8.9 mg/dL (7.8-10.44); Carbon Dioxide 22 mmol/L (23-31); Chloride 108 mmol/L (98-107); Estimated GFR 80; Globulin 2.4 g/dL (2.4-3.5); Glucose 120 mg/dL (83-110); Potassium 4.6 mmol/L (3.5-5.1); Protein, Total 6.1 g/dL (5.8-8.1); Sodium 139 mmol/L (136-145)
[2022-08-18 16:42] LABS: Bacteria/HPF None Seen HPF (None Seen); Bilirubin Negative (Negative); Blood, Urine Negative (Negative); Clarity Clear (Clear); Glucose, Urine (Dipstick) Normal (Negative); Ketone, Urine Negative (Negative); Leukocyte 25 Leu/uL (Negative); Nitrite Negative (Negative); Protein, Urine (Dipstick) Negative (Neg-Trace); Specific Gravity, Urine 1.014 (1.002-1.036); Squamous Epithelial 0-3 HPF (0-3); Urobilinogen Normal mg/dL (Less than 2); pH, Urine 5.5 (5.0-9.0)
[2022-08-18 17:05] LABS: INR-International Normal Ratio 0.9; PTT 31.1 sec (22.9-36.1); Prothrombin Time 12.6 sec (12.0-14.7)
[2022-08-18] MEDS ORDERED: Ondansetron PF 4 MG/2 ML Vial IVP PRN (18:15)
[2022-08-18] MEDS ORDERED: hydrALAZINE 20 MG/ML VIAL SLOW IVP PRN (18:15)
[2022-08-18] MEDS ORDERED: Acetaminophen 500 MG TAB PO SCH (19:00)
[2022-08-18] MEDS ORDERED: Scopolamine 1.5 mg/72 hour Patch TD SCH (20:00)
[2022-08-18] MEDS: Famotidine/PF 20 mg/2ml Vial SLOW IVP SCH (20:48)
[2022-08-19] MEDS: Acetaminophen 500 MG TAB PO SCH ×4 (00:47→18:44)
[2022-08-19 04:43] LABS: #Eosinphils 0.4 thou/uL (0.0-0.7); #Lymphocytes 1.7 thou/uL (1.20-3.40); #Monocytes 0.7 thou/uL (0.11-0.59); %Basophils 0.7 % (0.0-1.0); %Eosinophils 5.6 % (0.0-10.0); %Lymphocytes 24.7 % (21.0-51.0); %Monocytes 9.8 % (0.0-10.0); %Neutrophils 59.1 % (42.0-75.0); Mean Corpuscular HGB CONC 32.8 g/dL (32.0-36.0); Mean Corpuscular Hemoglobin 32.8 pg (27.0-31.0); Mean Corpuscular Volume 99.9 fL (78.0-98.0); Mean Platelet Volume 7.9 fL (7.4-10.4); Platelet Count 185 thou/uL (130-400); RBC Distribution Width 11.6 % (11.5-14.5); Red Blood Cell (RBC) Count 4.58 mill/uL (4.70-6.10); White Blood Cell (WBC) Count 6.8 thou/uL (4.8-10.8)
[2022-08-19 04:57] LABS: INR-International Normal Ratio 1.1; PTT 30.5 sec (22.9-36.1); Prothrombin Time 13.9 sec (12.0-14.7)
[2022-08-19 04:58] LABS: Anion Gap 11 mmol/L (10-20); BUN (Urea Nitrogen) 14 mg/dL (8.4-25.7); Calc. Creatinine Clearance 0 mL/min (70-130); Carbon Dioxide 23 mmol/L (23-31); Chloride 107 mmol/L (98-107); Estimated GFR 88; Glucose 92 mg/dL (83-110); Potassium 3.7 mmol/L (3.5-5.1); Sodium 137 mmol/L (136-145)
[2022-08-19] MEDS ORDERED: TETANUS, DIPHTHERIA TOX,ADULT (TDVAX) 0.5 ML VIAL IM ONE (09:00)
[2022-08-19] MEDS: Famotidine/PF 20 mg/2ml Vial SLOW IVP SCH ×2 (09:37→20:45)
[2022-08-19] MEDS: levETIRAcetam 500 MG TAB PO SCH (20:45)
[2022-08-19] MEDS ORDERED: levETIRAcetam 500 MG TAB PO SCH (21:00)
[2022-08-20] MEDS: Acetaminophen 500 MG TAB PO SCH ×5 (00:42→23:54)
[2022-08-20] MEDS ORDERED: diphenhydrAMINE 50 MG/ML VIAL IVP SCH (03:45)
[2022-08-20] MEDS ORDERED: Lorazepam 2 MG/ML VIAL SLOW IVP SCH (03:45)
[2022-08-20 06:35] LABS: Bacteria/HPF None Seen HPF (None Seen); Bilirubin Negative (Negative); Blood, Urine 2+ (Negative); Clarity Clear (Clear); Glucose, Urine (Dipstick) Normal (Negative); Ketone, Urine Negative (Negative); Leukocyte 25 Leu/uL (Negative); Nitrite Negative (Negative); Protein, Urine (Dipstick) 30 mg/dL (Neg-Trace); RBC/HPF Greater than 50 HPF (0-3); Specific Gravity, Urine 1.019 (1.002-1.036); Squamous Epithelial None Seen HPF (0-3); Urobilinogen Normal mg/dL (Less than 2); pH, Urine 6.5 (5.0-9.0)
[2022-08-20 10:23] LABS: #Basophils 0.1 thou/uL (0.0-0.2); #Eosinphils 0.3 thou/uL (0.0-0.7); #Lymphocytes 1.9 thou/uL (1.20-3.40); #Monocytes 0.7 thou/uL (0.11-0.59); #Neutrophils 4.4 thou/uL (1.40-6.50); %Basophils 0.7 % (0.0-1.0); %Eosinophils 4.5 % (0.0-10.0); %Lymphocytes 25.4 % (21.0-51.0); %Monocytes 9.4 % (0.0-10.0); %Neutrophils 59.9 % (42.0-75.0); Mean Corpuscular HGB CONC 32.9 g/dL (32.0-36.0); Mean Corpuscular Hemoglobin 32.7 pg (27.0-31.0); Mean Corpuscular Volume 99.5 fL (78.0-98.0); Mean Platelet Volume 7.9 fL (7.4-10.4); Platelet Count 169 thou/uL (130-400); RBC Distribution Width 11.8 % (11.5-14.5); White Blood Cell (WBC) Count 7.4 thou/uL (4.8-10.8)
[2022-08-20 10:41] LABS: Anion Gap 12 mmol/L (10-20); BUN (Urea Nitrogen) 13 mg/dL (8.4-25.7); Calc. Creatinine Clearance 0 mL/min (70-130); Calcium 8.8 mg/dL (7.8-10.44); Carbon Dioxide 22 mmol/L (23-31); Chloride 107 mmol/L (98-107); Estimated GFR 76; Glucose 89 mg/dL (83-110); Magnesium 2.2 mg/dL (1.6-2.6); Phosphorus 2.8 mg/dL (2.3-4.7); Sodium 137 mmol/L (136-145)
[2022-08-20] MEDS: Tamsulosin HCl 0.4 MG CAP PO SCH (10:44)
[2022-08-20] MEDS: levETIRAcetam 500 MG TAB PO SCH ×2 (10:44→20:09)
[2022-08-20] MEDS: Famotidine 20 MG TAB PO SCH ×2 (10:44→20:08)
[2022-08-20] MEDS ORDERED: Melatonin 3 MG TAB PO SCH (21:00)
[2022-08-21] MEDS: Acetaminophen 500 MG TAB PO SCH ×3 (05:49→18:34)
[2022-08-21] MEDS: levETIRAcetam 500 MG TAB PO SCH (09:23)
[2022-08-21] MEDS: Tamsulosin HCl 0.4 MG CAP PO SCH (09:23)
[2022-08-21 11:38] VITALS: BMI 22.4
[2022-08-21 16:52] VITALS: BP 126/75; TEMP 97.8
== END 2022-08-21 19:30 | DRG 83 ==
LOC: ERS 15:17 → 2NO 18:15 → SURG A 08-19 12:40
PROVIDERS: ADMIT Specialist; ATTEND Specialist
DX: S06.5XAA Traumatic subdural hemorrhage with loss of consciousness status unknown, initial encounter (principal); I42.9 Cardiomyopathy, unspecified; S06.6XAA Traumatic subarachnoid hemorrhage with loss of consciousness status unknown, initial encounter; F41.9 Anxiety disorder, unspecified; I25.10 Atherosclerotic heart disease of native coronary artery without angina pectoris; N18.9 Chronic kidney disease, unspecified; I12.9 Hypertensive chronic kidney disease with stage 1 through stage 4 chronic kidney disease, or unspecified chronic kidney disease; G89.11 Acute pain due to trauma; Z20.822 Contact with and (suspected) exposure to COVID-19; Z88.0 Allergy status to penicillin; Z88.2 Allergy status to sulfonamides; Z88.8 Allergy status to other drugs, medicaments and biological substances; Z95.1 Presence of aortocoronary bypass graft; Z88.5 Allergy status to narcotic agent; Z79.899 Other long term (current) drug therapy; Z86.73 Personal history of transient ischemic attack (TIA), and cerebral infarction without residual deficits
CPT/HCPCS: 36415; 70450; 71045; 80048; 80053; 81003; 81015; 83735; 84100; 84146; 84484; 85025; 85610; 85730; 87086; 93005; G0390; J1200; J2060; S0028; U0003; U0005